=== PATIENT | female | born 1945 | race Caucasian/White ===

== ENCOUNTER → 2019-07-21 | Day surgery (SDC) | payer MEDICARE, OTHER ==
[2019-07-16 12:16] LABS: BASOPHILS # (AUTO) 0.1 (0.0-0.1); BASOPHILS % 0.8 % (0.0-1.0); EOSINOPHILS # (AUTO) 0.1 (0.0-0.4); EOSINOPHILS % 0.4 % (0.0-6.0); HEMATOCRIT 37.9 % (34.2-44.1); HEMOGLOBIN 12.3 g/dL (12.0-16.0); LYMPHOCYTES # (AUTO) 2.9 (1.0-3.2); LYMPHOCYTES % 21.4 % (18.0-39.1); MEAN CORPUSCULAR HEMOGLOBIN 29.7 pg (28-32); MEAN CORPUSCULAR HGB CONC 32.5 g/dL (31-35); MEAN CORPUSCULAR VOLUME 91.5 fL (81-99); MONOCYTES # (AUTO) 1.4 (0.2-0.8); MONOCYTES % 10.6 % (4.4-11.3); NEUTROPHILS # (AUTO) 8.9 (2.1-6.9); NEUTROPHILS % 66.1 % (38.7-80.0); PLATELET COUNT 316 x10e3/uL (140-360); RED BLOOD COUNT 4.14 x10e6/uL (3.6-5.1); RED CELL DISTRIBUTION WIDTH 14.6 % (11.7-14.4)
[2019-07-16 12:41] LABS: ALANINE AMINOTRANSFERASE 14 IU/L (0-55); ALBUMIN 3.8 g/dL (3.5-5.0); ALBUMIN/GLOBULIN RATIO 0.9 (0.8-2.0); ALKALINE PHOSPHATASE 95 IU/L (40-150); ANION GAP 12.1 mmol/L (8-16); BLOOD UREA NITROGEN 17 mg/dL (7-26); BUN/CREATININE RATIO 19 (6-25); CALCIUM 9.5 mg/dL (8.4-10.2); CARBON DIOXIDE 29 mmol/L (22-29); CHLORIDE 102 mmol/L (98-107); CREATININE, SERUM 0.91 mg/dL (0.57-1.11); EST GLOMERULAR FILTRATION RATE > 60 ML/MIN (60-); GLUCOSE 104 mg/dL (74-118); POTASSIUM 4.1 mmol/L (3.5-5.1); SODIUM 139 mmol/L (136-145)
--- NOTE | 2019-07-16 12:54 | Diagnostic Imaging Report ---
Exam: Chest radiograph Clinical History: Preoperative clearance Findings: The cardiomediastinal silhouette and lungs are normal. The regional skeleton and soft tissue are unremarkable. There is no evidence of pleural effusion or pneumothorax. Impression: No radiographic evidence of acute cardiopulmonary disease. Signed by: Dr. Roger Link MD on 07/16/2019 12:51 PM
[~2019-07-21] MED LIST: BUPIVACAINE HCL 0.5% INJ 30 ML VIAL INJ ONE; CEFAZOLIN SOD 1 GM/NS 50ML 50 ML IV ONE; CLINDAMYCIN HC150 MG PO; CRESTOR10 MG PO; DEXAMETHASONE SOD PHOS INJ 4 MG/ML VIAL ONE; EPHEDRINE SULFATE INJ 50 MG/ML VIAL ONE; GABAPENTIN300 MG PO; HYDROCHLOROTHIA25 MG PO; LIDOCAINE HCL 2% LOCAL INJ 5 ML SDV VIAL INJ ONE; METFORMIN HCL500 MG PO; MICARDIS40 MG PO; ONDANSETRON HCL INJ 2MG/ML 2ML 2 MG/ML VIAL ONE; PROPOFOL IV EMULSION 10 MG/ML 20 ML VIAL ONE; SERTRALINE HCL50 MG PO; SEVOFLURANE INHAL SOLN 250 ML PEN BTL ONE
[2019-07-21 09:40] VITALS: BP 113/62
--- NOTE | 2019-07-23 12:55 | Operative Report ---
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 POSTOPERATIVE DIAGNOSES: Left 2nd digit hammertoe, left 3rd digit hammertoe, left 4th digit hammertoe. PROCEDURES: 1. Left 2nd digit arthroplasty. 2. Left 3rd digit arthroplasty. 3. Left 4th digit arthroplasty. SURGEON: Óscar Panda DPM ([place]) [employer]: Josse Hall DPM ANESTHESIA: General with a postoperative block consisting of 10 mL of 0.5% Marcaine plain. HEMOSTASIS: Pneumatic thigh tourniquet set at 350 mmHg for a total time of approximately 30 minutes. MATERIALS: Three 0.045 K-wires, 3-0 Vicryl, 4-0 nylon. ESTIMATED BLOOD LOSS: Less than 10 mL. PATHOLOGY: None. PROCEDURE NOTE: The patient was seen in the preoperative waiting room. The correct procedure and site were identified. The patient was brought to the operating room and placed on the operating table in supine position. General anesthesia was initiated. At this time, a well-padded pneumatic tourniquet was placed about the patient's left thigh. The left foot, ankle, and leg were then scrubbed, prepped, and draped in the usual aseptic manner. The left foot, ankle, and leg were exsanguinated with an Esmarch bandage and the pneumatic thigh tourniquet was inflated to 350 mmHg for a total time of approximately 30 minutes. Attention was directed to the dorsal aspect of the patient's left 2nd digit, where a 1.5 cm linear incision was made directly over the proximal interphalangeal joint. Incision was carried down to the subcutaneous tissue, it from deep or underlying structures. All vital and neurovascular structures were identified, retracted, medially, and laterally. All bleeders were cauterized or ligated as deemed necessary. At this time, a tenotomy and capsulotomy was performed at the level of the proximal interphalangeal joint to allow for good visualization of the proximal interphalangeal joint. Utilizing a sagittal saw, the head of the proximal phalanx as well as the base of the middle phalanx was resected, and passed off to the back table. Next, attention was directed to the 2nd metatarsophalangeal joint, where a stab incision was made to allow for a tenotomy and capsulotomy of the extensor tendon. Next, in a retrograde fashion, 0.045 K-wire, it was drilled through the middle and distal phalanx back into the proximal phalanx into the metatarsal head, and this was confirmed via intraoperative fluoroscopy. The same exact procedure as noted above was performed of the 3rd and 4th digits with no modifications in technique, and the same excellent result was achieved. All wounds were then copiously irrigated with sterile saline. Capsule and deep tissue were reapproximated with 3-0 Vicryl, subcutaneous with 3-0 Vicryl. The skin was closed using simple interrupted sutures with 4-0 nylon. All pins were bent and capped appropriately. The incision site was then dressed with Adaptic, 4x4s, Kerlix, Sacha wrap, and a postop shoe. The patient tolerated the procedure and anesthesia well. The patient was transferred to the postoperative recovery room with vital signs stable and vascular status intact. The patient is monitored there for a short period time before being sent home with the following written and oral instructions: 1. Keep the dressing clean, dry, and intact. 2. The patient is to remain partial weightbearing in a postop shoe to avoid excessive ambulation until being seen in the office. 3. The patient was given the office number and instructed to contact us if any problems arise. Dictated by Josse Hall DPM S MARY [facility] ([place])/MODL /[id number]
== END | disposition home or self-care (01) ==
LOC: OR 05:36
PROVIDERS: ATTEND Podiatrist Foot & Ankle Surgery
DX: M20.42 Other hammer toe(s) (acquired), left foot (principal); E11.9 Type 2 diabetes mellitus without complications; I10 Essential (primary) hypertension; E78.00 Pure hypercholesterolemia, unspecified; R42 Dizziness and giddiness; Z79.84 Long term (current) use of oral hypoglycemic drugs; Z86.73 Personal history of transient ischemic attack (TIA), and cerebral infarction without residual deficits
CPT/HCPCS: 28270 ×3; 28285 ×3; 36415 ×2; 71046; 80053; 82948; 85025; 87635; 93005; C1713; J0690; J1100; J2001; J2405; J2704